=== PATIENT | male | born 1990 | race Asian ===

== ENCOUNTER 2020-06-09 14:20 | Emergency (ER) | payer OTHER ==
[~2020-06-09] VITALS: Ht 177.8 cm; Wt 81.6 kg
[2020-06-09 14:44] VITALS: TEMP 98
[2020-06-09 15:31] LABS: PLATELET COUNT 193 K/uL (142-355)
[2020-06-09 15:41] LABS: POTASSIUM 3.6 mmol/L (3.6-5.2)
[2020-06-09 17:05] VITALS: BP 128/87
== END 2020-06-09 17:05 | disposition home or self-care (01) ==
LOC: ED 14:20
PROVIDERS: Hospitalist
DX: L03.114 Cellulitis of left upper limb (principal); L02.414 Cutaneous abscess of left upper limb; T63.301A Toxic effect of unspecified spider venom, accidental (unintentional), initial encounter; Y92.89 Other specified places as the place of occurrence of the external cause
CPT/HCPCS: 36415; 80048; 85027; 87040; 96365; 96375; 99284; J1885; J2930; J3370

== ENCOUNTER 2020-10-02 17:16 | Emergency (ER) | payer OTHER ==
[~2020-10-02] VITALS: Ht 177.8 cm; Wt 81.6 kg
[2020-10-02 19:47] VITALS: BP 119/78; TEMP 98.7
== END 2020-10-02 19:47 | disposition home or self-care (01) ==
LOC: ED 17:16
PROC: 0CQ00ZZ Repair Upper Lip, Open Approach (ICD-10-PCS; principal; 2020-10-02)
DX: S01.511A Laceration without foreign body of lip, initial encounter (principal); W01.198A Fall on same level from slipping, tripping and stumbling with subsequent striking against other object, initial encounter; Y92.89 Other specified places as the place of occurrence of the external cause
CPT/HCPCS: 99282; 99283

== ENCOUNTER 2020-10-10 12:38 | Emergency (ER) | payer OTHER ==
[~2020-10-10] VITALS: Ht 177.8 cm; Wt 86.2 kg
[2020-10-10 12:45] VITALS: BP 126/76; TEMP 98.6
== END 2020-10-10 13:50 | disposition home or self-care (01) ==
LOC: ED 12:38
DX: Z48.02 Encounter for removal of sutures (principal)

== ENCOUNTER 2020-11-07 21:22 | Emergency (ER) | payer OTHER ==
[~2020-11-07] VITALS: Ht 177.8 cm; Wt 81.6 kg
[2020-11-07 23:30] VITALS: BP 135/86; TEMP 98.1
== END 2020-11-07 23:30 | disposition home or self-care (01) ==
LOC: ED 21:22
DX: H10.32 Unspecified acute conjunctivitis, left eye (principal)
CPT/HCPCS: 99283